=== PATIENT | male | born 1990 | race African-American/Black ===

== ENCOUNTER 2020-07-01 08:48 | Emergency (ER) | payer MEDICAID ==
[~2020-07-01] VITALS: Ht 193 cm; Wt 133.6 kg
[2020-07-01 08:52] VITALS: BP 162/110
[2020-07-01] MEDS ORDERED: HYDROcodone/APAP 5/325 TABLET PO ONE (09:30)
[2020-07-01] MEDS ORDERED: HYDROcodone/APAP 5/325 TABLET ONE (09:34)
== END 2020-07-01 09:54 | disposition home or self-care (01) ==
LOC: ED 09:08
DX: K02.9 Dental caries, unspecified (principal); K08.89 Other specified disorders of teeth and supporting structures
CPT/HCPCS: 64400; 99284